=== PATIENT | female | born 1980 | race Caucasian/White ===

== ENCOUNTER → 2019-08-28 | Day surgery (SDC) | payer BC ==
[2019-08-23 09:45] LABS: BASOPHIL % 0.8 % (0-2); PLATELET COUNT 223 x10^3mcL (130-400); RED CELL DISTRIBUTION WIDTH 13.4 % (11.5-14.5)
[2019-08-23 10:00] LABS: ALBUMIN 3.5 g/dL (3.4-5.0); ALKALINE PHOSPHATASE 133 U/L (46-116); ALT/SGPT 74 U/L (14-59); AST/SGOT 40 U/L (15-37); BILIRUBIN TOTAL 0.48 mg/dL (0.20-1.00); CALCIUM 8.5 mg/dL (8.5-10.1); CARBON DIOXIDE 25.8 mmol/L (21-32); CHLORIDE SERUM 100 mmol/L (98-107); CREATININE SERUM 0.6 mg/dL (0.6-1.0); GFR1 > 60 mL/min; GLUCOSE SERUM 208 mg/dL (74-106); SODIUM SERUM 134 mmol/L (136-145); TOTAL PROTEIN, SERUM 7.5 g/dL (6.4-8.2)
--- NOTE | 2019-08-25 09:53 | NUR ---
LAB TESTS SENT TO [facility] FOR REVIEW. LAB TEST OKAY FOR SURGERY ON 08-28-[address] Elsie LOPEZ. REPEAT BLOOD SUGAR ON ADMIT PER DR. CLAU LOPEZ.
[~2019-08-28] VITALS: Ht 154.9 cm; Wt 81.6 kg
[2019-08-28 09:16] VITALS: BP 137/81
== END | disposition home or self-care (01) ==
LOC: MA 08-24 10:00 → DS 08:49 → MA 10:00
PROVIDERS: Surgery
DX: Z53.8 Procedure and treatment not carried out for other reasons (principal); N64.89 Other specified disorders of breast; Z79.899 Other long term (current) drug therapy
CPT/HCPCS: J2001

== ENCOUNTER 2019-10-31 08:19 | Day surgery (SDC) | payer BC ==
[2019-10-26 15:53] LABS: BASOPHIL % 0.5 % (0-2); PLATELET COUNT 217 x10^3mcL (130-400); RED CELL DISTRIBUTION WIDTH 13.2 % (11.5-14.5)
[2019-10-26 16:01] LABS: ALBUMIN 3.4 g/dL (3.4-5.0); ALKALINE PHOSPHATASE 121 U/L (46-116); BILIRUBIN TOTAL 0.51 mg/dL (0.20-1.00); CALCIUM 8.6 mg/dL (8.5-10.1); CARBON DIOXIDE 30.1 mmol/L (21-32); CHLORIDE SERUM 101 mmol/L (98-107); CREATININE SERUM 0.5 mg/dL (0.6-1.0); GFR1 > 60 mL/min; GLUCOSE SERUM 214 mg/dL (74-106); POTASSIUM SERUM 4.4 mmol/L (3.5-5.1); SODIUM SERUM 137 mmol/L (136-145); TOTAL PROTEIN, SERUM 7.4 g/dL (6.4-8.2)
[2019-10-26 16:19] LABS: AST/SGOT 26 U/L (15-37)
[2019-10-26 17:18] LABS: ALT/SGPT 54 U/L (14-59)
[~2019-10-31] VITALS: Ht 154.9 cm; Wt 81.6 kg
[2019-10-31 09:04] VITALS: BP 137/81
[2019-10-31 17:26] VITALS: BP 130/74
== END 2019-10-31 17:20 | disposition home or self-care (01) ==
LOC: DS 08:19 → MA 10:00 → DS 10:00
PROVIDERS: Surgery
DX: N64.89 Other specified disorders of breast (principal); N62 Hypertrophy of breast
CPT/HCPCS: J0690; J2001; J2250; J2405; J3010; J3490; J7120